=== PATIENT | male | born 1995 | race Caucasian/White ===

== ENCOUNTER 2016-08-12 22:25 | Emergency (ER) | payer SELFPAY ==
[~2016-08-12] VITALS: Ht 182.9 cm; Wt 74.4 kg
[2016-08-12 22:45] VITALS: BP 161/88
== END 2016-08-13 06:52 | disposition left against medical advice (07) ==
LOC: ER 22:28
DX: L02.415 Cutaneous abscess of right lower limb (principal); Z53.21 Procedure and treatment not carried out due to patient leaving prior to being seen by health care provider

== ENCOUNTER → 2016-08-14 | Outpatient (CLI) | payer BC | END | disposition home or self-care (01) | LOC: LAB 07:13 | PROVIDERS: ATTEND Physician Assistant | DX: T81.4XXA Infection following a procedure, initial encounter (principal) | CPT/HCPCS: 87205 ==

== ENCOUNTER → 2016-09-22 | Outpatient (CLI) | payer BC | END | disposition home or self-care (01) | LOC: LAB 04:08 | PROVIDERS: ATTEND Physician Assistant | DX: L03.317 Cellulitis of buttock (principal) | CPT/HCPCS: 87205 ==